=== PATIENT | female | born 1960 | race Asian ===

== ENCOUNTER 2018-04-14 16:09 | Emergency (ER) | payer SELFPAY ==
[~2018-04-14] VITALS: Ht 167.6 cm; Wt 68.5 kg
[2018-04-14 16:26] VITALS: Ht 167.6 cm; Wt 68.5 kg
[2018-04-14 19:06] VITALS: BP 142/79
== END 2018-04-14 19:06 | disposition home or self-care (01) ==
LOC: ED 16:09
DX: S30.1XXA Contusion of abdominal wall, initial encounter (principal); R07.89 Other chest pain; V89.2XXA Person injured in unspecified motor-vehicle accident, traffic, initial encounter; Y93.I9 Activity, other involving external motion; Y92.488 Other paved roadways as the place of occurrence of the external cause; Y99.8 Other external cause status